=== PATIENT | female | born 1945 | race Caucasian/White ===

== ENCOUNTER 2018-09-09 04:39 | Outpatient (CLI) | payer MEDICARE, MEDICAID ==
[~2018-09-09 04:39] MED LIST: ACET-75 PO; ARIP2TAB37 PO; BIOT25008 PO; BUTA1CAP43 PO; CHOL200052 PO; CLON-527 PO; ESCI20TA38 PO; FLAX100015 PO; GLUC-193 PO; IBUP-1984 PO; INDLA60C PO; LISI-642 PO; LUTE1CAP PO; MELA2.5T PO; MIRT45TA PO; MULT-342 PO; OMEG-44 PO; OXYB5TAB11 PO; QUET50TA PO; SIMV40TA4 PO; UBID60CA6 PO; soy lecithin PO
== END 2018-09-09 23:59 | disposition home or self-care (01) ==
LOC: DIABETIC 04:39
PROVIDERS: ATTEND Family Medicine
DX: Z71.3 Dietary counseling and surveillance (principal); Q39.3 Congenital stenosis and stricture of esophagus
CPT/HCPCS: 97802

== ENCOUNTER 2019-11-10 07:18 | Day surgery (SDC) | payer MEDICARE, MEDICAID ==
[2019-11-10] VITALS (17 sets, daily range): BP systolic 117–131; BP diastolic 59–89
[~2019-11-10] VITALS: Ht 162.6 cm; Wt 67.6 kg
[~2019-11-10 07:18] MED LIST changes: -ESCI20TA38 PO; +ESCI20TA45 PO; -OXYB5TAB11 PO; +OXYB5TAB16 PO; +SIMV-45 PO; -SIMV40TA4 PO
[2019-11-10] MEDS ORDERED: normal saline 1000ml 1,000 ML IV PRN (07:45)
[2019-11-10 08:30] LABS: BASOPHILS # (AUTO) 0.1 X10'3 (0-0.2); BASOPHILS % (AUTO) 0.5 % (0-1); EOSINOPHILS # (AUTO) 0.1 X10'3 (0-0.9); EOSINOPHILS % (AUTO) 1.1 % (0-6); HEMATOCRIT 40.5 % (35.0-45.0); HEMOGLOBIN 13.9 g/dl (12.0-16.0); LYMPHOCYTES # (AUTO) 1.4 X10'3 (1.1-4.8); LYMPHOCYTES % (AUTO) 11.4 % (21-51); MEAN CORPUSCULAR HEMOGLOBIN 33.3 PG (27.0-31.0); MEAN CORPUSCULAR HGB CONC 34.2 g/dL (33.0-36.5); MEAN CORPUSCULAR VOLUME 97.3 FL (78-98); MEAN PLATELET VOLUME 6.3 FL (7.4-10.4); MONOCYTES # (AUTO) 0.9 X10'3 (0-0.9); MONOCYTES % (AUTO) 7.6 % (2-12); NEUTROPHILS # (AUTO) 9.7 X10'3 (1.8-7.7); NEUTROPHILS % (AUTO) 79.4 % (42-75); PLATELET COUNT 465 X10'3 (140-440); RED BLOOD COUNT 4.17 X10'6 (4.20-5.60); RED CELL DISTRIBUTION WIDTH 12.7 % (11.5-14.5); WHITE BLOOD COUNT 12.2 X10'3 (4.5-11.0)
[2019-11-10] MEDS ORDERED: TRAM50TA2 PO (08:40)
[2019-11-10] MEDS ORDERED: ENTA200T23 PO (08:40)
[2019-11-10] MEDS ORDERED: MIRA50TA PO (08:40)
[2019-11-10] MEDS ORDERED: METH1TAB32 PO (08:40)
[2019-11-10] MEDS ORDERED: OLAN5TAB5 PO (08:40)
[2019-11-10] MEDS ORDERED: CARB1TAB23 PO (08:40)
[2019-11-10] MEDS ORDERED: PRAM0.253 PO (08:40)
[2019-11-10] MEDS ORDERED: midazolam 2 mg/2 ml injection IV PRN (08:45)
[2019-11-10] MEDS ORDERED: fentaNYL/PF 50MCG/1 ML 2ML syringe IV PRN (08:45)
[2019-11-10] MEDS ORDERED: LIDOcaine 1%/PF 5ML 10 MG/ML VIAL SQ ONE (08:45)
[2019-11-10] MEDS ORDERED: midazolam 2 mg/2 ml injection ONE (08:51)
[2019-11-10] MEDS ORDERED: fentaNYL/PF 50MCG/1 ML 2ML syringe ONE (08:51)
== END 2019-11-10 15:45 | disposition home or self-care (01) ==
LOC: SSTAY O 07:18
PROVIDERS: ATTEND Radiology Vascular & Interventional Radiology
DX: R91.8 Other nonspecific abnormal finding of lung field (principal); J84.10 Pulmonary fibrosis, unspecified; I10 Essential (primary) hypertension; F41.8 Other specified anxiety disorders; K21.9 Gastro-esophageal reflux disease without esophagitis; E78.00 Pure hypercholesterolemia, unspecified; Z88.8 Allergy status to other drugs, medicaments and biological substances; Z85.118 Personal history of other malignant neoplasm of bronchus and lung
CPT/HCPCS: 32405; 36415; 71045; 77012; 85025; 99152; 99153; J2250; J3010; 88305